=== PATIENT | female | born 1945 | race Hispanic/Latino ===

== ENCOUNTER 2017-10-20 07:10 | Emergency (ER) | payer OTHER ==
[2017-10-20 07:29] VITALS: RESP 18; BMI 42.9
--- NOTE | 2017-10-20 08:08 | ED PDOC ---
Arrival/HPI - General Chief Complaint: Finger,Hand,&Wrist Time Seen by Provider: 10/20/17 07:26 Historian: Patient - History of Present Illness Narrative History of Present Illness (Text): 10/20/17 08:09 Patient is a 72 yo female who tripped this morning prior to arrival and landed on outstretched right arm, injuring her right wrist. Denies head injury. Denies shoulder or elbow pain. Denies finger pain. Denies bleeding. Denies numbness or weakness. Time/Duration: Prior to Arrival Symptom Onset: Sudden Past Medical History - Cardiac Hx Cardiac Disorders: Yes Hx Hypertension: Yes Hx Pacemaker: No - Pulmonary Hx Respiratory Disorders: No - Neurological Hx Neurological Disorder: Yes Hx Paralysis: No Hx Seizures: Yes - HEENT Hx HEENT Disorder: No - Renal Hx Renal Disorder: No - Endocrine/Metabolic Hx Endocrine Disorders: No - Hematological/Oncological Hx Blood Disorders: No Hx Blood Transfusions: No Hx Blood Transfusion Reaction: No - Integumentary Hx Dermatological Disorder: No - Musculoskeletal/Rheumatological Hx Musculoskeletal Disorders: Yes - Gastrointestinal Hx Gastrointestinal Disorders: No - Genitourinary/Gynecological Hx Genitourinary Disorders: No - Psychiatric Hx Psychophysiologic Disorder: No Hx Emotional Abuse: No Hx Physical Abuse: No Hx Substance Use: No - Anesthesia Hx Anesthesia Reactions: No - Suicidal Assessment Feels Threatened In Home Enviroment: No Family/Social History Family/Social History: Unknown Family HX Smoking Status: Former Smoker Hx Alcohol Use: No Hx Substance Use: No Hx Substance Use Treatment: No Allergies/Home Meds Allergies/Adverse Reactions: Allergies codeine Allergy (Verified 10/20/17 07:27) VOMITING diazepam [From Valium] Allergy (Verified 10/20/17 07:27) VOMITING fentanyl Allergy (Verified 10/20/17 07:27) VOMITING midazolam Allergy (Verified 10/20/17 07:27) VOMITING midazolam HCl [From Versed] Allergy (Verified 10/20/17 07:27) VOMITING morphine Allergy (Verified 10/20/17 07:27) VOMITING Home Medications: Home Meds Medication Instructions Recorded Confirmed Docusate [Colace] 200 mg PO DAILY 11/18/11 10/20/17 Lansoprazole 30 mg PO DAILY 11/18/11 10/20/17 Aspirin [Adult Low Dose Aspirin EC] 81 mg PO DAILY 04/24/16 10/20/17 Levetiracetam 1,000 mg PO QAM 04/24/16 10/20/17 Levetiracetam 1,250 mg PO QPM 04/30/16 10/20/17 Review of Systems - Review of Systems Constitutional: absent: Fevers Respiratory: absent: SOB Cardiovascular: absent: Chest Pain Gastrointestinal: absent: Nausea Musculoskeletal: Other (right wrist pain, no elbow or shoulder pain). absent: Back Pain, Neck Pain Neurological: absent: Headache, Focal Weakness Hemo/Lymphatic: absent: Easy Bleeding Physical Exam Vital Signs Reviewed: Yes Vital Signs Temp Pulse Resp BP Pulse Ox 10/20/17 09:43 97.7 F 72 18 138/70 98 10/20/17 09:39 97.7 F 72 18 138/70 98 10/20/17 07:27 97.6 F 67 18 144/75 97 Temperature: Afebrile Appearance: Positive for: Non-Toxic Pain Distress: Mild Mental Status: Positive for: Alert and Oriented X 3 - Systems Exam Head: Present: Atraumatic Nose (Internal): Present: Normal Inspection Respiratory/Chest: No: Respiratory Distress Cardiovascular: Present: Regular Rate and Rhythm Abdomen: No: Tenderness Upper Extremity: Present: Neurovascularly Intact, Other (no pain to shoulder or elbow, there is deformity and tenderness to right wrist, radial aspect, median/ radial/ulnar motor and sensory function intact, radial pulse strong) Neurological: Present: Motor Func Grossly Intact, Normal Sensory Function Skin: Present: Warm. No: Laceration Psychiatric: Present: Alert, Normal Insight, Normal Concentration Medical Decision Making ED Course and Treatment: 10/20/17 08:13 Patient noted to be neurovascularly intact on initial examination. Patient with deformity noted to right wrist. No head injury. No shoulder or elbow pain. Xrays reviewed with patient, reveals displaced wrist fracture. Patient requests Dr. Fraizer from ortho, call was placed, Dr. Jamison will evaluate patient, patient updated with treatment plan. Multiple drug allergies reviewed. At this time she is comfortable, will continue serial exams. 10/20/17 08:24 X-ray reviewed by radiologist, shows comminuted, impacted intra-articular distal radial fracture with mild dorsal angulation of the distal articulating radial fragment. 10/20/17 09:26 Patient seen and treated by Dr. Frazier. Treatment plan reviewed with orthopedic consults. Given multiple pain medication sensitivities will discharge with tylenol, follow-up with ortho. Treatment plan and follow-up as per recommendations by Dr. Frazier who has communicated directly with patient and family. - RAD Interpretation Radiology Orders: 10/20/17 07:37 WRIST, RIGHT 3 VIEWS [RAD] Stat 10/20/17 08:57 WRIST AP LAT 2 VIEWS RT [RAD] Stat - Medication Orders Current Medication Orders: Discontinued Medications Acetaminophen (Tylenol 325mg Tab) 650 mg PO ONCE STA Stop: 10/20/17 08:57 Last Admin: 10/20/17 09:10 Dose: 650 mg MAR Pain/Vitals Document 10/20/17 09:10 [facility] (Rec: 10/20/17 09:30 [facility] [id number]) Pain Reassessment Is This A Pain ReAssessment? No Sleep Is patient sleeping during reassessment? No Presence of Pain Presence of Pain Yes Location Left, Right or Bilateral Right Disposition/Present on Arrival - Present on Arrival Any Indicators Present on Arrival: No History of DVT/PE: No History of Uncontrolled Diabetes: No Urinary Catheter: No History of Decub. Ulcer: No History Surgical Site Infection Following: None - Disposition Have Diagnosis and Disposition been Completed?: Yes Diagnosis: Wrist fracture, right Disposition: HOME/ ROUTINE Disposition Time: 09:00 Patient Plan: Discharge Condition: GOOD Discharge Instructions (ExitCare): Wrist Fracture (DC) Additional Instructions: Please follow instructions as per Dr. Frazier. Follow-up on as directed. Take tylenol every 4-6 hours as needed for pain. For any fever, increased/worsening of pain, numbness, weakness, elbow or shoulder pain, persistent or worsening of any symptoms, get rechecked. Prescriptions: Acetaminophen [Pain Relief] 650 mg PO Q6 PRN #24 capsule PRN Reason: Pain, Moderate (4-7) Referrals: Kg Jacobs MD [Primary Care Provider] - Follow up with primary Ted Frazier DO [Staff Provider] - Follow up with primary Forms: [employer] (Nepali)
[2017-10-20] MEDS ORDERED: Bupivacaine 0.5% Inj(30mL) ONE (08:20)
[2017-10-20] MEDS ORDERED: Lidocaine 1% 5ml Abboject IV ONE (08:20)
--- NOTE | 2017-10-20 08:21 | RAD ---
Date of service: 10/20/2017 PROCEDURE: Right Wrist Radiographs. HISTORY: right wrist fracture COMPARISON: None. FINDINGS: BONES: Comminuted and impacted intra-articular distal radial fracture. Dorsal angulation of the distal articulating fragment. No definite ulnar styloid process fracture. No carpal fracture appreciated. Normal scapholunate interval. There is subluxation at the 1st metacarpal -phalangeal articulation consistent with degenerative arthritis. JOINTS: As above SOFT TISSUES: Normal. OTHER FINDINGS: None. IMPRESSION: Comminuted, impacted intra-articular distal radial fracture with mild dorsal angulation of the distal articulating radial fragment.
[2017-10-20 09:41] VITALS: BP 138/70; PULSE 72; TEMP 97.7; O2SAT 98
--- NOTE | 2017-10-20 09:47 | RAD ---
Date of service: Reduction 10/20/2017 PROCEDURE: Right Wrist Radiographs. HISTORY: post reduction COMPARISON: None. FINDINGS: BONES: Status post close reduction distal radial fracture. Gross anatomic alignment achieved. Bony detail obscured by overlying plaster fast. No additional abnormality demonstrated. JOINTS: Normal. No dislocation. SOFT TISSUES: Normal. OTHER FINDINGS: None. IMPRESSION: Status post close reduction with gross anatomic alignment.
--- NOTE | 2017-10-20 19:28 | CON ---
Copied To: Ted Frazier DO Attending MD: Ted Frazier DO DATE: 10/20/2017 ORTHOPEDIC CONSULT HISTORY OF PRESENT ILLNESS: The patient is a 72-year-old female who suffered a displaced fracture of the wrist to the distal radius this morning on 10/20/2017 when she fell at home. X-rays in the ER showed a dorsally displaced fracture with comminution of the distal radius with loss of radial length and dorsal tilt. With the help of the local anesthesia to do a hematoma block, we did ligamentotaxis by putting traction device on the thumb, index, and middle finger and put 20 pounds weights on her hand to stretch out the fracture. After several minutes, muscles were exhausted, we then did a manipulating maneuver to reduce the fracture completely by getting rid of the dorsal tilt and getting some radial length and then put in a coaptation cast with open sides swell, this is a very large frame and then we have waited the cast to harden and post reduction x-ray showed acceptable position of the right wrist. I told we can we continue conservative therapy and re-x-ray her in 10 days and continue this for 2-1/2 weeks and then put on a circular cast if the fracture is in good position by elevating it at home and then see her in 10 days checking for the neurovascular status. FINAL DIAGNOSIS: Dorsally displaced distal right wrist fracture, comminuted at the distal radius. The patient was told she never be a 100%, but hopefully she will have a functional wrist and will have to be out of work for at least 6 to 8 weeks. Ted Frazier DO
== END 2017-10-20 09:44 | disposition home or self-care (01) ==
LOC: ED 07:10
DX: S52.571A Other intraarticular fracture of lower end of right radius, initial encounter for closed fracture (principal); W01.0XXA Fall on same level from slipping, tripping and stumbling without subsequent striking against object, initial encounter; Y92.009 Unspecified place in unspecified non-institutional (private) residence as the place of occurrence of the external cause; I10 Essential (primary) hypertension; Z87.891 Personal history of nicotine dependence

== ENCOUNTER 2018-05-22 10:19 | Outpatient (CLI) | payer OTHER | END 2018-05-22 10:20 | disposition home or self-care (01) | LOC: LAB 10:19 ==